=== PATIENT | male | born 1995 | race African-American/Black ===

== ENCOUNTER 2022-03-09 01:10 | Emergency (ER) | payer SELFPAY ==
[~2022-03-09] VITALS: Ht 190.5 cm; Wt 77.1 kg
[2022-03-09 01:43] LABS: BASO # 0.1 10*3/uL (0.0-0.1); BASO % 0.9 % (0.0-1.0); EOS # 0.1 10*3/uL (0.0-0.4); EOS % 0.9 % (1.0-4.0); HEMATOCRIT 45.1 % (42.0-52.0); LYMPH # 3.1 10*3/uL (1.3-4.4); LYMPH % 46.7 % (27.0-41.0); MEAN CELL VOLUME 85.1 fl (80.0-94.0); MEAN CORPUSCULAR HGB 29.4 pg (27.0-31.0); MEAN CORPUSCULAR HGB CONC 34.6 g/dl (33.0-37.0); MEAN PLATELET VOLUME 10.1 fl (9.6-12.3); MONO # 0.5 10*3/uL (0.1-1.0); MONO % 6.9 % (3.0-9.0); NEUT # 2.9 10*3/uL (2.3-7.9); NEUT % 44.3 % (47.0-73.0); PLATELET COUNT AUTOMATED 267 10*3/uL (130-400); WHITE BLOOD COUNT 6.6 10*3/uL (4.8-10.8)
[2022-03-09 01:58] LABS: ALKALINE PHOSPHATASE 130 U/L (46-116); CHLORIDE 106 mmol/L (98-107); LIPASE 37 U/L (12-53); POTASSIUM 3.9 mmol/L (3.4-5.1); SGPT/ALT 14 U/L (10-49); TOTAL PROTEIN 7.7 gm/dL (6.0-8.0)
[2022-03-09 01:59] LABS: BUN < 5 mg/dl (9-23)
[2022-03-09] MEDS ORDERED: PROMETHAZINE25 M1 PO (02:20)
== END 2022-03-09 03:33 | disposition home or self-care (01) ==
LOC: ED 01:10
PROVIDERS: Emergency Medicine
DX: R11.2 Nausea with vomiting, unspecified (principal)